=== PATIENT | female | born 1975 | race Caucasian/White ===

== ENCOUNTER → 2018-12-14 14:52 | Outpatient (REF) | payer OTHER, SELFPAY | LOC: LAB 14:52 | PROVIDERS: Visit Provider Physician Assistant | DX: L01.01 Non-bullous impetigo (principal); L02.821 Furuncle of head [any part, except face]; L71.8 Other rosacea | CPT/HCPCS: 87070; 87075; 87077; 87102; 87205 ==

== ENCOUNTER → 2024-11-07 09:46 | Outpatient (CLI) | payer OTHER, SELFPAY | PROVIDERS: Referring Provider Nurse Practitioner Family; Visit Provider Nurse Practitioner Family | DX: R05.2 Subacute cough (principal); R94.2 Abnormal results of pulmonary function studies | CPT/HCPCS: 94010; 94726; 94729 ==